=== PATIENT | female | born 1945 | race Caucasian/White ===

== ENCOUNTER 2019-01-02 10:48 | Day surgery (SDC) | payer MEDICARE ==
[~2019-01-02 10:48] MED LIST: Ak-Dilate OPHTHALMIC*** 1.065 ML, Cyclogyl 1% OPHTH SOL 5 ML 1.065 ML, GATIFLOXACIN 0.5... OP ONE; BETADINE 5% OPHTHALMIC 30 ML OP ONE; BSS 500 ML, Fortaz/Tazicef 1 GM** 0.2 G IO ONE; Epinephrine Preservative Free 1 MG/ML INTRAOP ONE; LIDOCAINE HCL 1% AMPUL 5 ML IJ ONE; Lactated Ringers 1,000 ML IV ONE; Lactated Ringers 1,000 ML IV SCH; TETRACAINE 0.5% STERI-UNIT SOL OP ONE; TRIMOXI 0.6 ML OPHTH INJECTION OP ONE; Zofran 4 MG/2 ML VIAL IV PRN
[2019-01-02] MEDS ORDERED: DIPRIVAN 200 MG/20 ML IV ONE (13:28)
[2019-01-02] MEDS ORDERED: TRANDATE 100 MG/20 ML MDV FOR DRIP IV ONE (13:57)
--- NOTE | 2019-01-02 15:57 | OP ---
DATE/TIME OF OPERATION: 01/02/2019 1320 TIME DICTATED: 1442 PREOPERATIVE DIAGNOSIS: Senile cataract of left eye. POSTOPERATIVE DIAGNOSIS: Senile cataract of left eye. SURGEON: Donna Castro MD SOCIAL AND HUMAN SERVICES ASSISTANT: None. OPERATION: Cataract extraction of left eye with an intraocular lens implant. STANDARD __X___ COMPLEX ANESTHESIA: MAC. ___X___ Monitored anesthesia care in combination with topical and intra-cameral anesthesia (because of the established specific risk of reflux, arrhythmias, or an anxiety attack associated with ocular manipulation as well as difficulty of the special technical operations officer to manage such potentially catastrophic events while simultaneously attempting to complete the surgical procedure, it was deemed necessary for the patient's safety to have an anesthesiologist or a nurse driver/refuse collector present during the procedure whenever possible. The anesthesiologist or the nurse driver/refuse collector was utilized to monitor and regulate the intravenous sedation of the patient, so the patient was cooperative, relaxed, and comfortable). Topical anesthesia using Tetracaine eye drops together with intra cameral anesthesia using Lidocaine 1% MPF. The nurse was utilized to monitor the patient. ANESTHESIA PROVIDER: Reji Faustin CRNA. COMPLICATIONS: None. BLOOD LOSS: None. INDICATIONS: The patient is undergoing cataract surgery in the hopes of eliminating the visual complaints and difficulty. PROCEDURE: After arriving at the facility's outpatient surgery area, an IV was started; the patient was given 5 mg of p.o. Versed. (If an anesthesia provider was not monitoring the patient) The patient was then given topical anesthetic Tetracaine eye drops. A cotton pellet was soaked into a solution of a combination of Zymaxid 0.5%, Fred-Synephrine 2.5% and Ocufen (other drops might have been substituted referenced in the patient's record). The pellet was inserted by the RN into the lower conjunctival cul-de-sac with a sterile forceps and left for 20 minutes. The pellet was then removed by the RN with a sterile forceps before taking the patient to the operating room. The preoperative area nurse identified the patient and marked the correct eye to be operated on. I identified the correct eye to be operated on and marked it appropriately in the outpatient surgery area. The patient was then taken into the operating room. Tetracaine eye drops were installed again in the correct eye. The eyelids and the lashes and the lid margins were scrubbed with Betadine solution. One drop of the diluted Betadine solution was placed in the conjunctival cul-de-sac for 45 seconds and then was irrigated. A drop of Tetracaine Gel was placed in the conjunctival cul-de-sac. The patient's forehead was taped to secure it during the procedure. The patient was monitored. The patient was then draped in the usual way for this procedure. An eye speculum was used to separate the eyelids. The eye was then fixated and a temporal 2.5 mm incision was made in the clear cornea temporally at the limbus. Through the incision, 0.25 cc of 1% non-preserved lidocaine was injected into the anterior chamber for intracameral anesthesia. The anterior chamber was then filled with viscoelastic. The pupil was small. I felt that it would be safer to mechanically dilate the pupil. A Malyugin ring was used at this point which dilated the pupil. That was removed at the end of the procedure prior to aspiration of the viscoelastic from the anterior chamber and posterior to the intraocular lens implant. The cataract had a great amount of cortical changes. That rendered seeing the anterior capsule difficult for a safe performance of an anterior capsulotomy. I injected an air bubble into the anterior chamber. I then injected 1 ML of vision blue solution into the anterior chamber. The vision blue solution was irrigated from the anterior chamber after 30 seconds. The anterior capsule was stained which facilitated performing the anterior capsulotomy safely. After that was completed, a cystotome was introduced into the anterior chamber and a round anterior capsulotomy was performed. The capsule was removed by a forceps. Hydrodissection was next carried utilizing a 25-gauge cannula and balanced salt solution to delineate the cortical material from the capsule and the nucleus from the cortical material. The nucleus was rotated freely into the capsular bag with no difficulty. The phaco tip of the [employer] Phacoemulsifier was introduced into the anterior chamber and two grooves were made into the nucleus 90 degrees apart. Using two spatulas resulted into the nucleus being fractured into four quadrants. The phaco tip was then used to remove each quadrant of the nucleus. Viscoelastic was used during this process to protect the corneal endothelium. Once the entire nucleus was removed, the phaco tip then was removed and the irrigation tip was introduced into the eye and the cortex was removed. The posterior capsule was polished. It was noticed that there was a tear into the posterior capsule with few vitreous strands into the pupil plan. An anterior vitrectomy was performed. A 23.50 diopter, SN60WF, posterior chamber lens implant, was inspected and found to be grossly normal. The implant was inserted into the implant injector cartridge; Viscoelastic again was introduced into the anterior chamber, which filled the capsular bag. The implant injector's cartridge tip was placed at the limbal wound and the posterior chamber implant was released into the capsular bag and rotated appropriately. The implant was found to be into the capsular bag and it was centered. ___X__ 0.2 ml of Tri-Moxi was introduced via 27 gauge cannula into the vitreous cavity through the ciliary processes. Viscoelastic was aspirated from the anterior chamber and posterior to the intraocular lens implant from the capsular bag using the irrigating tip. The anterior chamber was irrigated and filled with 5 cc antibiotic solution (500 cc of BSS plus 2 ml of Fortaz 100 mg/ml) ( if patient was not allergic to the medication). The lips of the corneal incision were hydrated using BSS solution. The anterior chamber was checked and found to be water tight. One drop each of antibiotic, steroid and NSAID drops (refer to chart for drops used) were placed in the conjunctival cul-de-sac of the operated eye. Patient tolerated the procedure quite well and left the operating room in satisfactory condition. DISCHARGE SUMMARY: The patient was released in stable condition. The patient and those with the patient were given an instruction sheet as of how to care for the eye after surgery as well as counseling on any abnormal laboratory studies by the postoperative RN. The patient was also given an appointment card for follow-up in the office and is to call immediately for any difficulties including but not limited to pain in the eye, decreased vision, discharge from the eye, headache and or fever. DISCHARGE DIAGNOSIS: Pseudophakia of left eye.
[2019-01-02 16:45] VITALS: PULSE 69
[2019-01-02 16:52] VITALS: BP 144/63; O2SAT 95
== END 2019-01-02 15:00 | disposition home or self-care (01) ==
LOC: SDC 10:48
PROVIDERS: ATTEND Ophthalmology
DX: H25.812 Combined forms of age-related cataract, left eye (principal); I10 Essential (primary) hypertension; E78.00 Pure hypercholesterolemia, unspecified; F41.9 Anxiety disorder, unspecified; E07.9 Disorder of thyroid, unspecified; Z79.899 Other long term (current) drug therapy
CPT/HCPCS: 99100; C1780; J0171; J2704; A9270-GY

== ENCOUNTER 2019-01-30 11:13 | Day surgery (SDC) | payer MEDICARE ==
[~2019-01-30 11:13] MED LIST changes: -Lactated Ringers 1,000 ML IV ONE; -TRIMOXI 0.6 ML OPHTH INJECTION OP ONE
[2019-01-30] MEDS ORDERED: Lactated Ringers 1,000 ML IV ONE (11:25)
[2019-01-30] MEDS ORDERED: TRIMOXI 0.6 ML OPHTH INJECTION OP ONE (12:00)
[2019-01-30] MEDS ORDERED: DIPRIVAN 200 MG/20 ML IV ONE (13:05)
[2019-01-30 14:27] VITALS: BP 160/72; PULSE 67; O2SAT 98
--- NOTE | 2019-01-30 15:49 | OP ---
DATE/TIME OF OPERATION: 01/30/2019 1304 TIME DICTATED: 1437 PREOPERATIVE DIAGNOSIS: Senile cataract of right eye. POSTOPERATIVE DIAGNOSIS: Senile cataract of right eye. SURGEON: Donna Castro MD COMMERCIAL PRODUCTION EDITOR: None. OPERATION: Cataract extraction of right eye with an intraocular lens implant. STANDARD __X___ COMPLEX ANESTHESIA: MAC. ___X__ Monitored anesthesia care in combination with topical and intra-cameral anesthesia (because of the established specific risk of reflux, arrhythmias, or an anxiety attack associated with ocular manipulation as well as difficulty of the director social to manage such potentially catastrophic events while simultaneously attempting to complete the surgical procedure, it was deemed necessary for the patient's safety to have an anesthesiologist or a nurse butcher's assistant present during the procedure whenever possible. The anesthesiologist or the nurse butcher's assistant was utilized to monitor and regulate the intravenous sedation of the patient, so the patient was cooperative, relaxed, and comfortable). Topical anesthesia using Tetracaine eye drops together with intra cameral anesthesia using Lidocaine 1% MPF. The nurse was utilized to monitor the patient. ANESTHESIA PROVIDER: Reji Faustin CRNA. COMPLICATIONS: None. BLOOD LOSS: None. INDICATIONS: The patient is undergoing cataract surgery in the hopes of eliminating the visual complaints and difficulty. PROCEDURE: After arriving at the facility's outpatient surgery area, an IV was started; the patient was given 5 mg of p.o. Versed. (If an anesthesia provider was not monitoring the patient) The patient was then given topical anesthetic Tetracaine eye drops. A cotton pellet was soaked into a solution of a combination of Zymaxid 0.5%, Fred-Synephrine 2.5% and Ocufen (other drops might have been substituted referenced in the patient's record). The pellet was inserted by the RN into the lower conjunctival cul-de-sac with a sterile forceps and left for 20 minutes. The pellet was then removed by the RN with a sterile forceps before taking the patient to the operating room. The preoperative area nurse identified the patient and marked the correct eye to be operated on. I identified the correct eye to be operated on and marked it appropriately in the outpatient surgery area. The patient was then taken into the operating room. Tetracaine eye drops were installed again in the correct eye. The eyelids and the lashes and the lid margins were scrubbed with Betadine solution. One drop of the diluted Betadine solution was placed in the conjunctival cul-de-sac for 45 seconds and then was irrigated. A drop of Tetracaine Gel was placed in the conjunctival cul-de-sac. The patient's forehead was taped to secure it during the procedure. The patient was monitored. The patient was then draped in the usual way for this procedure. An eye speculum was used to separate the eyelids. The eye was then fixated and a temporal 2.5 mm incision was made in the clear cornea temporally at the limbus. Through the incision, 0.25 cc of 1% non-preserved lidocaine was injected into the anterior chamber for intracameral anesthesia. The anterior chamber was then filled with viscoelastic. The pupil was small. I felt that it would be safer to mechanically dilate the pupil. A Malyugin ring was used at this point which dilated the pupil. That was removed at the end of the procedure prior to aspiration of the viscoelastic from the anterior chamber and posterior to the intraocular lens implant. The cataract had a great amount of cortical changes. That rendered seeing the anterior capsule difficult for a safe performance of an anterior capsulotomy. I injected an air bubble into the anterior chamber. I then injected 1 ML of vision blue solution into the anterior chamber. The vision blue solution was irrigated from the anterior chamber after 30 seconds. The anterior capsule was stained which facilitated performing the anterior capsulotomy safely. After that was completed, a cystotome was introduced into the anterior chamber and a round anterior capsulotomy was performed. The capsule was removed by a forceps. Hydrodissection was next carried utilizing a 25-gauge cannula and balanced salt solution to delineate the cortical material from the capsule and the nucleus from the cortical material. The nucleus was rotated freely into the capsular bag with no difficulty. The phaco tip of the [employer] Phacoemulsifier was introduced into the anterior chamber and two grooves were made into the nucleus 90 degrees apart. Using two spatulas resulted into the nucleus being fractured into four quadrants. The phaco tip was then used to remove each quadrant of the nucleus. Viscoelastic was used during this process to protect the corneal endothelium. Once the entire nucleus was removed, the phaco tip then was removed and the irrigation tip was introduced into the eye and the cortex was removed. The posterior capsule was polished. It was noticed that there was a tear into the posterior capsule with few vitreous strands into the pupil plan. An anterior vitrectomy was performed. A 23.50 diopter, SN60WF, posterior chamber lens implant, was inspected and found to be grossly normal. The implant was inserted into the implant injector cartridge; Viscoelastic again was introduced into the anterior chamber, which filled the capsular bag. The implant injector's cartridge tip was placed at the limbal wound and the posterior chamber implant was released into the capsular bag and rotated appropriately. The implant was found to be into the capsular bag and it was centered. ___X__ 0.2 ml of Tri-Moxi was introduced via 27 gauge cannula into the vitreous cavity through the ciliary processes. Viscoelastic was aspirated from the anterior chamber and posterior to the intraocular lens implant from the capsular bag using the irrigating tip. The anterior chamber was irrigated and filled with 5 cc antibiotic solution (500 cc of BSS plus 2 ml of Fortaz 100 mg/ml) ( if patient was not allergic to the medication). The lips of the corneal incision were hydrated using BSS solution. The anterior chamber was checked and found to be water tight. One drop each of antibiotic, steroid and NSAID drops (refer to chart for drops used) were placed in the conjunctival cul-de-sac of the operated eye. Patient tolerated the procedure quite well and left the operating room in satisfactory condition. DISCHARGE SUMMARY: The patient was released in stable condition. The patient and those with the patient were given an instruction sheet as of how to care for the eye after surgery as well as counseling on any abnormal laboratory studies by the postoperative RN. The patient was also given an appointment card for follow-up in the office and is to call immediately for any difficulties including but not limited to pain in the eye, decreased vision, discharge from the eye, headache and or fever. DISCHARGE DIAGNOSIS: Pseudophakia of right eye.
== END 2019-01-30 14:38 | disposition home or self-care (01) ==
LOC: SDC 11:13
PROVIDERS: ATTEND Ophthalmology
DX: H25.811 Combined forms of age-related cataract, right eye (principal); I10 Essential (primary) hypertension; E78.00 Pure hypercholesterolemia, unspecified; E07.9 Disorder of thyroid, unspecified; Z79.899 Other long term (current) drug therapy
CPT/HCPCS: 99100; C1780; J0171; J2704; A9270-GY

== ENCOUNTER 2019-05-30 11:45 | Day surgery (SDC) | payer MEDICARE ==
[2019-05-30] MEDS ORDERED: Depo-Medrol 40 MG/ML IM ONE (11:46)
[2019-05-30] MEDS ORDERED: Xylocaine-Mpf 2% 5 Ml Vial IJ ONE (11:46)
[2019-05-30] MEDS ORDERED: Ketamine HCl 50 MG/ML ONE (13:34)
[2019-05-30] MEDS ORDERED: DIPRIVAN 200 MG/20 ML IV ONE (13:34)
[2019-05-30] MEDS ORDERED: Lactated Ringers 1,000 ML IV ONE (14:53)
--- NOTE | 2019-05-30 14:56 | XRAY ---
Indication: Bilateral L4-S1 MBB. Intraoperative fluoroscopy was provided for 16 seconds. Single digital spot image submitted for interpretation demonstrates posterior needle tips projecting over the expected course of the left and right L4-S1 nerve roots. Correlate with intraoperative findings/report.
--- NOTE | 2019-05-30 14:58 | XRAY ---
16 seconds fluoroscopy time in surgery for bilateral L4-S1 MBB.
== END 2019-05-30 13:55 | disposition home or self-care (01) ==
LOC: SDC-PAIN 11:45
PROVIDERS: ATTEND Psychiatry & Neurology Pain Medicine
DX: M47.816 Spondylosis without myelopathy or radiculopathy, lumbar region (principal); I10 Essential (primary) hypertension; J44.9 Chronic obstructive pulmonary disease, unspecified; K21.9 Gastro-esophageal reflux disease without esophagitis; Z79.899 Other long term (current) drug therapy
CPT/HCPCS: 64493; 64494; 72020; 77002; J1030; J2704

== ENCOUNTER 2019-06-20 11:09 | Day surgery (SDC) | payer MEDICARE ==
[2019-06-20] MEDS ORDERED: Depo-Medrol 40 MG/ML IM ONE (11:10)
[2019-06-20] MEDS ORDERED: Marcaine 0.5% SDV 10 ML IJ ONE (11:10)
[2019-06-20] MEDS ORDERED: DIPRIVAN 200 MG/20 ML IV ONE (12:27)
[2019-06-20] MEDS ORDERED: Ketamine HCl 50 MG/ML ONE (12:27)
[2019-06-20] MEDS ORDERED: Lactated Ringers 1,000 ML IV ONE (13:42)
--- NOTE | 2019-06-20 14:12 | XRAY ---
Indication: Bilateral L2-L5 MBB BECKY. Intraoperative fluoroscopy was provided for 10 seconds. Single digital spot image submitted for interpretation demonstrates posterior needle tips projecting over the expected course of the left and right L2-L5 nerve roots. Correlate with intraoperative findings/report.
--- NOTE | 2019-06-20 14:16 | XRAY ---
10 seconds fluoroscopy time in surgery for bilateral L2-L5 MBB.
== END 2019-06-20 12:57 | disposition home or self-care (01) ==
LOC: SDC-PAIN 11:09
PROVIDERS: ATTEND Psychiatry & Neurology Pain Medicine
DX: M47.816 Spondylosis without myelopathy or radiculopathy, lumbar region (principal); I10 Essential (primary) hypertension; J44.9 Chronic obstructive pulmonary disease, unspecified; K21.9 Gastro-esophageal reflux disease without esophagitis; F41.8 Other specified anxiety disorders; Z79.899 Other long term (current) drug therapy
CPT/HCPCS: 64493; 64494; 64495; 72020; 77002; J1030; J2704

== ENCOUNTER 2019-08-29 12:20 | Day surgery (SDC) | payer MEDICARE ==
[2019-08-29] MEDS ORDERED: Depo-Medrol 40 MG/ML IM ONE (12:21)
[2019-08-29] MEDS ORDERED: Marcaine 0.5% SDV 10 ML IJ ONE (12:21)
[2019-08-29] MEDS ORDERED: Xylocaine 1% Vial 30 ML PF IJ ONE (12:21)
[2019-08-29] MEDS ORDERED: Xylocaine-Mpf 2% 5 Ml Vial ONE (13:28)
[2019-08-29] MEDS ORDERED: Ketamine HCl 50 MG/ML ONE (13:28)
[2019-08-29] MEDS ORDERED: DIPRIVAN 200 MG/20 ML IV ONE (13:28)
--- NOTE | 2019-08-29 14:22 | XRAY ---
Indication: Right L2-L5 RFA. Intraoperative fluoroscopy was provided for 28 seconds. 3 digital spot images submitted for interpretation demonstrates posterior needle tips projecting over the expected course of the right L2-L5 nerve roots. Correlate with intraoperative findings/report.
[2019-08-29] MEDS ORDERED: Lactated Ringers 1,000 ML IV ONE (14:33)
--- NOTE | 2019-08-29 16:21 | XRAY ---
28 seconds fluoroscopy time in surgery for right L2-L5 RFA.
== END 2019-08-29 14:08 | disposition home or self-care (01) ==
LOC: SDC-PAIN 12:20
PROVIDERS: ATTEND Psychiatry & Neurology Pain Medicine
DX: M47.816 Spondylosis without myelopathy or radiculopathy, lumbar region (principal); I10 Essential (primary) hypertension; J44.9 Chronic obstructive pulmonary disease, unspecified; K21.9 Gastro-esophageal reflux disease without esophagitis; Z79.899 Other long term (current) drug therapy
CPT/HCPCS: 64635; 64636; 72100; 77002; 99100; J1030; J2001; J2704

== ENCOUNTER 2019-09-05 11:45 | Day surgery (SDC) | payer MEDICARE ==
[2019-09-05] MEDS ORDERED: Marcaine 0.5% SDV 10 ML IJ ONE (11:46)
[2019-09-05] MEDS ORDERED: Xylocaine 1% Vial 30 ML PF IJ ONE (11:46)
[2019-09-05] MEDS ORDERED: Depo-Medrol 40 MG/ML IM ONE (11:46)
[2019-09-05] MEDS ORDERED: Ketamine HCl 50 MG/ML ONE (12:44)
[2019-09-05] MEDS ORDERED: DIPRIVAN 200 MG/20 ML IV ONE (12:44)
[2019-09-05] MEDS ORDERED: Lactated Ringers 1,000 ML IV ONE (15:18)
--- NOTE | 2019-09-05 16:41 | XRAY ---
28 seconds fluoroscopy time in surgery for left L2-L5 RFA.
--- NOTE | 2019-09-08 19:42 | XRAY ---
Indication: Left L2-L5 RFA. Intraoperative fluoroscopy was provided for 28 seconds. 3 digital spot images submitted for interpretation demonstrates posterior needle tips projected over the expected course of the left L2-L5 nerve roots. Correlate with intraoperative findings/report.
== END 2019-09-05 13:12 | disposition home or self-care (01) ==
LOC: SDC-PAIN 11:45
PROVIDERS: ATTEND Psychiatry & Neurology Pain Medicine
DX: M47.816 Spondylosis without myelopathy or radiculopathy, lumbar region (principal); I10 Essential (primary) hypertension; J44.9 Chronic obstructive pulmonary disease, unspecified; K21.9 Gastro-esophageal reflux disease without esophagitis; Z79.899 Other long term (current) drug therapy
CPT/HCPCS: 64633; 64635; 64636; 72100; 77002; 99100; J1030; J2001; J2704